=== PATIENT | female | born 1960 | race Asian ===

== ENCOUNTER 2017-05-06 01:59 | Day surgery (SDC) | payer OTHER ==
[~2017-05-06] VITALS: Ht 160 cm; Wt 62.6 kg
[~2017-05-06 01:59] MED LIST: ATOR10TA65 PO; BETA15CR2 TP; CALC500T6 PO; CHOL10005 PO; DICY10CA11 PO; LEVO75TA68 PO; OMEP40CA48 PO
[2017-05-06] MEDS ORDERED: fentaNYL CITR 100 MCG/2 ML AMP ONE ×2 (08:09→13:04)
[2017-05-06] MEDS ORDERED: LIDOCAINE MPF 1% 5 ML VIAL ONE (08:09)
[2017-05-06] MEDS ORDERED: PROPOFOL EMUL(*) 10MG/ML 20 ML 20 ML ONE (08:09)
[2017-05-06] MEDS ORDERED: DEXAMETHASONE SOD PHOS 10MG/ML ONE (08:09)
[2017-05-06] MEDS ORDERED: ONDANSETRON 4 MG/2 ML VIAL ONE (08:09)
[2017-05-06 08:56] LABS: PLATELET COUNT, AUTOMATED 302 K/uL (150-450)
[2017-05-06] MEDS ORDERED: NORMOSOL R SOLN(*) 1000 ML BAG 1,000 ML IV PRN (09:15)
[2017-05-06] MEDS ORDERED: FAMOTIDINE 20 MG TAB PO ONE (09:15)
[2017-05-06] MEDS ORDERED: LIDOCAINE/SOD BICARB 8.4% SYR ID ONE (09:15)
[2017-05-06] MEDS ORDERED: MIDAZOLAM 2 MG/2 ML VIAL IVP PRN (09:15)
[2017-05-06 09:27] VITALS: BP 141/76
[2017-05-06] MEDS ORDERED: ROCURONIUM BROM 10 MG/ML 5 ML ONE (10:45)
[2017-05-06] MEDS ORDERED: KETAMINE HCL 200 MG/20 ML MDV ONE (10:45)
[2017-05-06] MEDS ORDERED: ceFAZolin 1 GM VIAL ONE (11:06)
[2017-05-06] MEDS ORDERED: BUPIV/EPI 0.25% 1:200,000 50ML INFIL ONE (11:27)
[2017-05-06] MEDS ORDERED: SUGAMMADEX SOD 200 MG/2 ML SDV ONE (11:28)
[2017-05-06] MEDS ORDERED: ePHEDrine 25 MG/5 ML DISP.SYR IVP ONE (11:30)
[2017-05-06] MEDS ORDERED: HALOPERIDOL LACT 5 MG/ML VIAL IM ONE (11:39)
[2017-05-06] MEDS ORDERED: KETOROLAC 30 MG/ML VIAL ONE (12:15)
[2017-05-06] MEDS ORDERED: LR(*) 1000 ML BAG 1,000 ML IV ONE (12:50)
[2017-05-06] MEDS ORDERED: ONDANSETRON 4 MG/2 ML VIAL IVP PRN (12:50)
[2017-05-06] MEDS ORDERED: METOCLOPRAMIDE 10 MG/2 ML SDV IVP PRN (12:50)
--- NOTE | 2017-05-06 13:03 | Post Operative Note ---
Operative Note - [employer] Operative Day Date: May 06, 2017 Time: 12:51 Physicians Surgeon: Tere Enrique Safety Professional: Jeff Bishop MD Anesthesia: GET Diagnosis Pre-Op Diagnosis: 56 y/o G0 Female Postmenopausal bleeding Post-Op Diagnosis: Same Procedure Findings: Fluffy endometrium. No mass noted. Uterus 8 week size, Anterior uterine perforation noted. Diagnositic laparoscopy: Perforation anterior uterus at edge of where vesicouterine peritoneum meet. No bleeding. No bowel injury. Diagnositic Cystoscopy: Trigone intact, Bilateral uretral jets noted. Dome intact. No bladder injury. Hysteroscopy Deficit 246 Total Fluid used 750 Procedure(s): Diagnostic Hysteroscopy with Dilation and Currettage. Diagnostic Laparoscopy Diagnostic Cystoscopy Specimen Removed:(Maybe N/A): Endometrial Currettings Complications: Anterior Uterus Peforation Fluids Fluids: 1500 Estimated Blood Loss: 50 Dictated Date OP Note Dictated: May 06, 2017 Time OP Note Dictated: 13:03 TERE ENRIQUE DO May 06, 2017 13:03
[2017-05-06] MEDS ORDERED: IBUP800T37 PO (13:04)
[2017-05-06] MEDS ORDERED: PER PO (13:04)
--- NOTE | 2017-05-06 13:06 | OB/GYN Discharge Summary ---
Discharge Summary Reason for Hosp/Final Diag: (1) Post-menopausal bleeding Hospital Course & Plan: Pt presented for procedure. See procedure note for details. Pt remained in the out patient setting and was discharged home from Post op. [facility] Vital Signs Vital Signs Date Time Temp Pulse Resp B/P (MAP) Pulse Ox O2 Delivery O2 Flow Rate FiO2 05/06/17 09:27 98.3 73 16 141/76 (97) 92 Room Air Weight (Pounds): 138 Result Diagram: 05/06/17 0846 Condition: Improved Discharge: Home Home Meds Active Scripts Oxycodone/Acetaminophen (OXYCODONE/ACETAMINOPHEN 5MG/325 MG) 5 Mg/325 Mg Tab, 0 TAB PO Q4H Y for PAIN, #20 TAB 0 Refills Prov:TERE CHIN DO 05/06/17 Ibuprofen (IBUPROFEN) 800 Mg Tablet, 800 MG PO Q8H, #30 TAB 0 Refills Prov:TERE CHIN DO 05/06/17 Reported Medications Betamethasone/Propylene Glyc (BETAMETHASONE DP AUG 0.05% CRM) 15 Gm Cream..g., 15 GM TP DIRECTED 04/30/17 Dicyclomine Hcl (DICYCLOMINE HCL) 10 Mg Capsule, 10 MG PO QID Y for DIARRHEA, CAPSULE 04/30/17 Calcium Carbonate (CALCIUM) 500 Mg Tablet, 500 MG PO DAILY 04/30/17 Cholecalciferol (Vitamin D3) (VITAMIN D3) 1,000 Unit Tablet, 1000 UNIT PO DAILY , TAB 04/30/17 Omeprazole (OMEPRAZOLE) 40 Mg Capsule.dr, 40 MG PO HS, CAP 04/30/17 Atorvastatin Calcium (ATORVASTATIN CALCIUM) 10 Mg Tablet, 1 TAB PO HS, TAB 04/30/17 Levothyroxine Sodium (Levoxyl) 75 Mcg Tablet, 75 MCG PO QAM, 0 Refills 01/29/10 [facility] [phone], Dr. Chin [phone] Follow up in: 2 wks PO Discharge Diet: As Tolerates, Resume Prior Admit Diet, Increase Fluid Intake Discharge Activity: Pelvic Rest TERE CHIN DO May 06, 2017 13:06
[2017-05-06 13:43] VITALS: BP 107/63
[2017-05-06 14:04] VITALS: BP 120/71
[2017-05-06 14:15] VITALS: BP 108/70
[2017-05-06 14:28] VITALS: BP 112/73
[2017-05-06 14:29] VITALS: BP 122/68
--- NOTE | 2017-05-06 16:56 | OPERATIVE REPORT 1 ---
EVENT DATE: May 06, 2017 SURGEON: Rubén Enrique DO ANESTHESIOLOGIST: Hussein Nair MD ANESTHESIA: General endotracheal intubation. PATIENT TRANSITION SPECIALIST: Jeff Bishop MD PREOPERATIVE DIAGNOSES 1. A 56-year-old zero female. 2. Postmenopausal bleeding. 3. Failed endometrial biopsy in the office secondary to stenotic cervix. POSTOPERATIVE DIAGNOSES 1. A 56-year-old zero female. 2. Postmenopausal bleeding. 3. Failed endometrial biopsy in the office secondary to stenotic cervix. PROCEDURES PERFORMED 1. Diagnostic hysteroscopy with dilation and curettage. 2. Diagnostic laparoscopy. 3. Diagnostic cystoscopy. FINDINGS Fluffy endometrium on hysteroscopy. No mass noted. Uterus 8-week size. It was noted on diagnostic laparoscopy perforation of the anterior uterus at edge of the vesicouterine peritoneum. No bleeding noted. No bowel injury on running large and small bowel. Diagnostic cystoscopy, trigone intact. Bilateral ureteral jets noted. Dome intact. No bladder injury noted. Hysteroscopy deficit 246 with total fluid of 750 used. ESTIMATED BLOOD LOSS 50 mL PATHOLOGY Endometrial curettings. FLUIDS 1500 mL URINE OUTPUT Not reported. COMPLICATIONS Anterior uterus perforation. CONDITION Stable to recovery room. INDICATIONS AND CONSENT The patient is a 56-year-old zero female who presented to clinic with postmenopausal bleeding. An endometrial biopsy was performed in the clinic and was unsuccessful secondary to cervical stenosis. The patient represented for transvaginal ultrasound, and there was noted to be a 2 cm thick endometrial stripe. With the endometrial stripe being that thick, the patient was counseled that she should proceed with sampling of the uterine tissue. The patient was consented for diagnostic hysteroscopy and signed the appropriate consents. DESCRIPTION OF PROCEDURE The patient was taken to the operating room where she was placed in the dorsal supine position. She had general endotracheal intubation achieved. Once anesthesia was achieved, the patient was then placed in the dorsal lithotomy position. She was prepped and draped in the usual sterile manner. A sterile speculum was placed in the vagina. The cervix was visualized and grasped with a single-toothed tenaculum. The uterus was dilated using Hegar dilators to approximately a 9. The hysteroscope was easily placed through the cervix. Bilateral uterine cornua were noted. At this point, the patient then underwent curettage with a sharp curette. On the second pass of the endometrial curettings, there was immediate loss of resistance. The sharp curette was removed. The hysteroscope was placed back in the uterus, and it was noted that through the perforation, there was bowel, and omental appendages were easily visualized. Because of the perforation, the procedure at this point was halted. With perforation secondary to sharp curette, the patient would benefit from a diagnostic laparoscopy to ensure perforation of the bowel or bladder was not evident. Diagnostic laparoscopy: Once the abdomen was prepped, the 11 mm blade was then used to create a 5 mm incision. Once the incision was created, a pneumoperitoneum was achieved with a Veress needle. Direct laparoscopic entry was achieved. The abdomen was quickly inspected to ensure no injury. Upon getting in the abdomen, there was no injury noted. At this point, the patient was placed in Trendelenburg position. The uterus was inspected, and it was noted there was an anterior uterine perforation that appeared to be hemostatic. The perforation did appear to be at the edge of the vesicouterine peritoneum. At this point, the large bowel starting from the sigmoid colon was run in its entirety up the right pelvic sidewall as well as on the descending colon on the left pelvic sidewall with no injury noted on ascending, descending, or sigmoid colon. At this point, attention was then turned to finding the cecum, and the small bowel was run from the cecum. At this point, no injury was noted of the large or small bowel. The trocars were removed from the abdomen once the pneumoperitoneum was released, and diagnostic cystoscopy was performed. Diagnostic cystoscopy: With the cystoscope placed, the bladder was insufflated with normal saline. The trigone was inspected and found to be intact without any injury. Bilateral ureteral jets were visualized with no injury of the dome of the bladder. At this point with the procedure complete, the team felt the abdomen looked good with no signs of injury to the surrounding organs. The patient then had the skin incisions closed with a 4-0 Monocryl. The patient was then awoken and transferred to the recovery room in stable condition. MARTA
[2017-05-06] MEDS ORDERED: IBUPROFEN 800 MG TAB PO SCH (17:00)
== END 2017-05-06 13:42 | disposition home or self-care (01) ==
LOC: OR 01:59
PROVIDERS: ATTEND Student in an Organized Health Care Education/Training Program
DX: N95.0 Postmenopausal bleeding (principal); N88.2 Stricture and stenosis of cervix uteri
CPT/HCPCS: 36415; 52000; 58120; 85025; 88305; J0690; J1100; J1630; J1885; J2001; J2250; J2405; J2704; J3010; J3490

== ENCOUNTER → 2017-07-14 | Outpatient (CLI) | payer OTHER ==
[~2017-07-14] MED LIST changes: +IBUP800T37 PO; +PER PO
--- NOTE | 2017-07-15 08:38 | RADIOLOGY IMAGING REPORT ---
FACILITY: [facility] [place] PATIENT NAME: KATRIN VELAZQUEZ : [id number] MR: [id number] V: [id number] EXAM DATE: [id number] ORDERING PHYSICIAN: ERIK GONZALEZ TECHNOLOGIST: Kristan Guzman PROCEDURE:BILATERAL DIGITAL SCREENING MAMMOGRAM WITH CAD ASSISTED INTERPRETATION & 3D TOMOSYNTHESIS COMPARISON:Prior mammograms 06/25/16, 06/12/16, 02/19/15, 02/16/14, 02/14/13, 01/30/12. INDICATIONS:screening FINDINGS: Moderately heterogeneous fibroglandular tissue is seen throughout the breasts. The parenchymal pattern has remained stable allowing for difference in mammographic technique & patient positioning. There are multiple scattered small round calcifications seen throughout the breasts. There is no evidence of malignant appearing mass, malignant appearing calcifications or other secondary sign of malignancy in either breast. DIAGNOSTIC CATEGORY 2--BENIGN FINDING. RECOMMENDATIONS: ROUTINE MAMMOGRAM AND CLINICAL EVALUATION. IMPRESSION: BIRADS 2: Benign finding. No significant abnormality is seen. Dictated by: Kay Navarro M.D. on 07/14/2017 at 15:06 Transcribed by: NAYA on 07/14/2017 at 15:19 Approved by: Kay Navarro M.D. on 07/15/2017 at 8:37 [facility]
== END ==
LOC: MAMO 00:53
PROVIDERS: ATTEND Nurse Practitioner Family
DX: Z12.31 Encounter for screening mammogram for malignant neoplasm of breast (principal)
CPT/HCPCS: 77063; 77067

== ENCOUNTER → 2017-12-10 | Outpatient (CLI) | payer OTHER ==
--- NOTE | 2017-12-10 16:30 | RADIOLOGY IMAGING REPORT ---
FACILITY: [facility] [place] PATIENT NAME: Mirela Melgar : 1960 MR: [id number] V: [id number] EXAM DATE: ORDERING PHYSICIAN: ERIK GONZALEZ TECHNOLOGIST: Location: [facility] Patient: Mirela Melgar : 1960 Visit/Account:[id number] Date of Sevice: 12/10/2017 KUB SINGLE VIEW ABDOMEN HISTORY: Pain COMPARISON: CT examination abdomen and pelvis from December 2010 FINDINGS: Single view demonstrates nonobstructive bowel pattern. No pneumatosis, free air or radiographic evid ence of pathology. Vague circular densities are seen in the right upper quadrant, possibly represent ing gallstones. IMPRESSION: 1. Nonobstructive pattern without radiographic evidence of acute pathology. Report Dictated By: Vicente Paulino MD at 12/10/2017 4:25 PM Report E-Signed By: Vicente Paulino MD at 12/10/2017 4:27 PM WSN:[email or web address]
== END ==
LOC: RAD 15:20
PROVIDERS: ATTEND Nurse Practitioner Family
DX: R10.9 Unspecified abdominal pain (principal)
CPT/HCPCS: 74018

== ENCOUNTER 2017-12-16 09:10 | Outpatient (RCR) | payer OTHER ==
--- NOTE | 2017-12-21 10:00 | RADIOLOGY IMAGING REPORT ---
FACILITY: [facility] [place] PATIENT NAME: Mirela Melgar : 1960 MR: [id number] V: [id number] EXAM DATE: ORDERING PHYSICIAN: ERIK GONZALEZ TECHNOLOGIST: Location: Patient: Mirela Melgar : 1960 Visit/Account:[id number] Date of Sevice: 12/21/2017 EXAMINATION: Right upper quadrant abdominal ultrasound HISTORY: Right upper quadrant pain COMPARISON: September 15, 2013 FINDINGS: The visible aorta and IVC are normal. The visible pancreas is normal. The liver is normal in slightly increased in echogenicity and normal in size. Main portal vein is pa tent with expected directional flow. The gallbladder is normal without stone or wall thickening. The extrahepatic bile duct is normal chris suring 3 mm. Negative sonographic Wilson sign. The right kidney is normal measuring 9.7 cm sagittal dimension. IMPRESSION: 1. Normal gallbladder. 2. Slight hepatic steatosis. 3. Otherwise normal right upper quadrant ultrasound. Report Dictated By: Joce Grijalva MD at 12/21/2017 9:53 AM Report E-Signed By: Joce Grijalva MD at 12/21/2017 9:56 AM WSN:[email or web address]
== END 2017-12-21 18:00 | disposition home or self-care (01) ==
LOC: US 09:10
PROVIDERS: ATTEND Nurse Practitioner Family
DX: R10.11 Right upper quadrant pain (principal)
CPT/HCPCS: 76705

== ENCOUNTER 2018-04-30 16:11 | Emergency (ER) | payer OTHER ==
--- NOTE | 2018-04-30 16:22 | ER Report ---
History and Physical Time Seen By MD: 16:22 HPI/ROS CHIEF COMPLAINT: Lightheadedness and dizziness HISTORY OF PRESENT ILLNESS: This is a 57-year-old female who presents to the emergency department for lightheadedness and dizziness. Patient was seen and evaluated by her primary care provider this afternoon for lightheadedness and dizziness, they were concerned that she had a somewhat elevated blood pressure associate with her symptoms is going center to the ER for an evaluation. Patient arrives alert and oriented, interacting well. She had a mild pressure behind her left eye earlier this week however she denies symptoms of that at this time. She states she does have a history of positional vertigo typically on the left side, she usually avoid sleeping on her left side as this seems to induce the vertigo. Patient states that when she woke up this morning she sat up felt lightheaded and dizzy and had a nauseous feeling. Her symptoms are consistent with positional changes according the patient when she is walking up or downstairs, t urning or moving from a sitting to standing position is induce the dizziness. She denies fevers or chills. No chest pain or shortness of breath. No numbness or tingling. Denies headaches. No rashes. REVIEW OF SYSTEMS: Constitutional: No fever, no chills. Eyes: No discharge. ENT: No sore throat. Cardiovascular: No chest pain, no palpitations. Respiratory: No cough, no shortness of breath. Gastrointestinal: No abdominal pain, no vomiting. Genitourinary: No hematuria. Musculoskeletal: No back pain. Skin: No rashes. Neurological: As above. Allergies: Coded Allergies: No Known Drug Allergies (Verified , 04/30/18) Home Meds Active Scripts Ibuprofen (IBUPROFEN) 800 Mg Tablet, 800 MG PO Q8H, #30 TAB 0 Refills Prov:TERE CHIN DO 05/06/17 Reported Medications Betamethasone/Propylene Glyc (BETAMETHASONE DP AUG 0.05% CRM) 15 Gm Cream..g., 15 GM TP DIRECTED 04/30/17 Dicyclomine Hcl (DICYCLOMINE HCL) 10 Mg Capsule, 10 MG PO QID PRN for DIARRHEA, CAPSULE 04/30/17 Calcium Carbonate (CALCIUM) 500 Mg Tablet, 500 MG PO DAILY 04/30/17 Cholecalciferol (Vitamin D3) (VITAMIN D3) 1,000 Unit Tablet, 1000 UNIT PO DAILY, TAB 04/30/17 Omeprazole (OMEPRAZOLE) 40 Mg Capsule.dr, 40 MG PO HS, CAP 04/30/17 Atorvastatin Calcium (ATORVASTATIN CALCIUM) 10 Mg Tablet, 1 TAB PO HS, TAB 04/30/17 Levothyroxine Sodium (Levoxyl) 75 Mcg Tablet, 75 MCG PO QAM, 0 Refills 01/29/10 Discontinued Scripts Oxycodone/Acetaminophen (OXYCODONE/ACETAMINOPHEN 5MG/325 MG) 5 Mg/325 Mg Tab, 0 TAB PO Q4H PRN for PAIN, #20 TAB 0 Refills Prov:TERE CHIN DO 05/06/17 Past Medical/Surgical History The patient has a past medical and surgical history of hypercholesterolemia, pneumonia, occasional heartburn, arthritis, wears glasses, hypothyroidism, lupus, eczema, D&C, hysterectomy. Reviewed Nurses Notes: Yes Hx Smoking: No Hx Substance Use Disorder: No Hx Alcohol Use: No Constitutional Vital Sign - Last 24 Hours 04/30/18 04/30/18 04/30/18 04/30/18 16:11 16:16 16:19 16:26 Temp 98.2 Pulse ??? 78 80 Resp 14 15 B/P (MAP) 146/76 146/76 (99) Pulse Ox 94 93 O2 Delivery Room Air 04/30/18 04/30/18 04/30/18 04/30/18 16:30 16:41 16:46 16:47 Pulse 81 Resp 10 B/P (MAP) 145/62 (89) 143/59 (87) 153/77 (102) Pulse Ox 92 04/30/18 04/30/18 04/30/18 04/30/18 16:49 16:51 16:52 16:52 Pulse 79 82 82 B/P (MAP) 152/90 (110) 143/59 (87) 152/90 (110) 153/77 (102) 04/30/18 04/30/18 04/30/18 04/30/18 16:56 17:00 17:11 17:26 Pulse 80 79 ??? Resp 11 14 20 B/P (MAP) 107/56 (73) Pulse Ox 92 89 93 04/30/18 04/30/18 04/30/18 04/30/18 17:44 17:56 18:01 18:16 Pulse 69 73 80 Resp 11 12 16 B/P (MAP) 136/66 (89) Pulse Ox 92 91 90 04/30/18 04/30/18 04/30/18 18:30 18:31 18:46 Pulse 69 71 Resp 9 14 B/P (MAP) 129/69 (89) Pulse Ox 93 91 Physical Exam General Appearance: The patient is alert, has no immediate need for airway protection and no signs of toxicity. Eyes: Pupils equal and round no pallor or injection. EOMs intact. No nystagmus. ENT, Mouth: Mucous membranes are moist. Respiratory: There are no retractions, lungs are clear to auscultation. Cardiovascular: Regular rate and rhythm, no murmurs, clicks or rubs. Gastrointestinal: Abdomen is soft and non tender, no masses, bowel sounds normal. Neurological: Alert and oriented 4. Moving all extremities. Following all commands. No focal neuro deficits. Negative HINTS exam. Skin: Warm and dry, no rashes. Musculoskeletal: Neck is supple non tender. Extremities are nontender, nonswollen and have full range of motion. DIFFERENTIAL DIAGNOSIS: After history and physical exam differential diagnosis was considered for vertigo including but not limited to peripheral causes such a s benign positional vertigo, Mnire's disease, viral labyrinthitis and central causes such as CVA, and tumor. NIH Stroke Scale: 0 Level of consciousness: Alert -0 Answers both questions correctly-0 Performs both tasks correctly-0 Best Gaze: Normal-0 Visual: No visual loss-0 Facial Palsy: Normal, symmetrical movements-0 Motor Left Arm: No drift for 10 seconds-0 Motor Right Arm: No drift for 10 seconds-0 Motor Left Leg: No drift for 5 seconds-0 Motor Right Leg: No drift for 5 seconds-0 Limb Ataxia: Absent-0 Sensory: Normal, no sensory loss-0 Best Language: Normal, no aphasia-0 Dysarthria: Normal-0 Extinction and Inattention: No abnormality-0 Medical Decision Making Data Points Result Diagram: 04/30/18 1716 04/30/18 1716 Laboratory Hematology Test 04/30/18 16:17 04/30/18 17:16 Urine Color Yellow Urine Clarity Clear Urine pH 7.0 pH (4.8-9.5) Urine Specific [place] 1.014 Urine Protein Negative mg/dL (NEGATIVE) Urine Glucose (UA) 50 mg/dL (NEGATIVE) Urine Ketones Negative mg/dL (NEGATIVE) Urine Blood Negative (NEGATIVE) Urine Nitrite Negative (NEGATIVE) Urine Bilirubin Negative (NEGATIVE) Urine Urobilinogen Negative mg/dL (0.2-1.9) Urine Leukocyte Esterase Negative (NEGATIVE) Urine RBC <1 /HPF (0-2/HPF) Urine WBC None /HPF (0-5/HPF) Urine Squamous Epithelial Cells None /LPF (</=FEW) Urine Bacteria Negative /HPF (NONE-FEW) Urine Mucus Few /HPF (NONE-FEW) Red Blood Count 4.82 M/uL (4.17-5.56) Mean Corpuscular Volume 92.8 fL (80.0-96.0) Mean Corpuscular Hemoglobin 30.4 pg (26.0-33.0) Mean Corpuscular Hemoglobin Concent 32.8 g/dL (32.0-36.0) Red Cell Distribution Width 13.5 % (11.5-14.5) Mean Platelet Volume 7.1 fL (7.2-11.1) Neutrophils (%) (Auto) 65.0 % (39.4-72.5) Lymphocytes (%) (Auto) 28.6 % (17.6-49.6) Monocytes (%) (Auto) 5.5 % (4.1-12.4) Eosinophils (%) (Auto) 0.3 % (0.4-6.7) Basophils (%) (Auto) 0.6 % (0.3-1.4) Nucleated RBC Relative Count (auto) 0.0 /100WBC Neutrophils # (Auto) 3.0 K/uL (2.0-7.4) Lymphocytes # (Auto) 1.3 K/uL (1.3-3.6) Monocytes # (Auto) 0.3 K/uL (0.3-1.0) Eosinophils # (Auto) 0.0 K/uL (0.0-0.5) Basophils # (Auto) 0.0 K/uL (0.0-0.1) Nucleated RBC Absolute Count (auto) 0.00 K/uL Sodium Level 142 mmol/L (137-145) Potassium Level 3.6 mmol/L (3.5-5.0) Chloride Level 107 mmol/L (98-107) Carbon Dioxide Level 26 mmol/L (22-31) Blood Urea Nitrogen 11 mg/dl (7-18) Creatinine 0.50 mg/dl (0.52-1.04) Glomerular Filtration Rate Calc > 60.0 Random Glucose 150 mg/dl (75-110) Calcium Level 9.4 mg/dl (8.4-10.2) Total Bilirubin 0.4 mg/dl (0.2-1.3) Aspartate Amino Transf (AST/SGOT) 39 U/L (0-35) Alanine Aminotransferase (ALT/SGPT) 39 U/L (0-56) Alkaline Phosphatase 73 U/L (0-126) Total Protein 8.0 g/dl (6.3-8.2) Albumin 4.5 g/dl (3.5-5.0) Chemistry Test 04/30/18 16:17 04/30/18 17:16 Urine Color Yellow Urine Clarity Clear Urine pH 7.0 pH (4.8-9.5) Urine Specific [place] 1.014 Urine Protein Negative mg/dL (NEGATIVE) Urine Glucose (UA) 50 mg/dL (NEGATIVE) Urine Ketones Negative mg/dL (NEGATIVE) Urine Blood Negative (NEGATIVE) Urine Nitrite Negative (NEGATIVE) Urine Bilirubin Negative (NEGATIVE) Urine Urobilinogen Negative mg/dL (0.2-1.9) Urine Leukocyte Esterase Negative (NEGATIVE) Urine RBC <1 /HPF (0-2/HPF) Urine WBC None /HPF (0-5/HPF) Urine Squamous Epithelial Cells None /LPF (</=FEW) Urine Bacteria Negative /HPF (NONE-FEW) Urine Mucus Few /HPF (NONE-FEW) White Blood Count 4.6 k/uL (4.5-11.0) Red Blood Count 4.82 M/uL (4.17-5.56) Hemoglobin 14.7 g/dL (12.0-16.0) Hematocrit 44.7 % (34.0-47.0) Mean Corpuscular Volume 92.8 fL (80.0-96.0) Mean Corpuscular Hemoglobin 30.4 pg (26.0-33.0) Mean Corpuscular Hemoglobin Concent 32.8 g/dL (32.0-36.0) Red Cell Distribution Width 13.5 % (11.5-14.5) Platelet Count 293 K/uL (150-450) Mean Platelet Volume 7.1 fL (7.2-11.1) Neutrophils (%) (Auto) 65.0 % (39.4-72.5) Lymphocytes (%) (Auto) 28.6 % (17.6-49.6) Monocytes (%) (Auto) 5.5 % (4.1-12.4) Eosinophils (%) (Auto) 0.3 % (0.4-6.7) Basophils (%) (Auto) 0.6 % (0.3-1.4) Nucleated RBC Relative Count (auto) 0.0 /100WBC Neutrophils # (Auto) 3.0 K/uL (2.0-7.4) Lymphocytes # (Auto) 1.3 K/uL (1.3-3.6) Monocytes # (Auto) 0.3 K/uL (0.3-1.0) Eosinophils # (Auto) 0.0 K/uL (0.0-0.5) Basophils # (Auto) 0.0 K/uL (0.0-0.1) Nucleated RBC Absolute Count (auto) 0.00 K/uL Glomerular Filtration Rate Calc > 60.0 Calcium Level 9.4 mg/dl (8.4-10.2) Total Bilirubin 0.4 mg/dl (0.2-1.3) Aspartate Amino Transf (AST/SGOT) 39 U/L (0-35) Alanine Aminotransferase (ALT/SGPT) 39 U/L (0-56) Alkaline Phosphatase 73 U/L (0-126) Total Protein 8.0 g/dl (6.3-8.2) Albumin 4.5 g/dl (3.5-5.0) Urinalysis Test 04/30/18 16:17 Urine Color Yellow Urine Clarity Clear Urine pH 7.0 pH (4.8-9.5) Urine Specific [place] 1.014 Urine Protein Negative mg/dL (NEGATIVE) Urine Glucose (UA) 50 mg/dL (NEGATIVE) Urine Ketones Negative mg/dL (NEGATIVE) Urine Blood Negative (NEGATIVE) Urine Nitrite Negative (NEGATIVE) Urine Bilirubin Negative (NEGATIVE) Urine Urobilinogen Negative mg/dL (0.2-1.9) Urine Leukocyte Esterase Negative (NEGATIVE) Urine RBC <1 /HPF (0-2/HPF) Urine WBC None /HPF (0-5/HPF) Urine Squamous Epithelial Cells None /LPF (</=FEW) Urine Bacteria Negative /HPF (NONE-FEW) Urine Mucus Few /HPF (NONE-FEW) EKG/Imaging EKG Interpretation 12 lead EKG: Time of EKG 1706. Rhythm: Normal sinus rhythm, ventricular rate 73 bpm. [place]: normal QRS: normal ST segments: No ST depression or elevation identified, poor T-wave progression in leads V1 through V4. No previous EKGs for comparison. Imaging Location: [facility] - [place] Patient: Mirela Melgar : 1960 Visit/Account:[id number] Date of Sevice: 04/30/2018 EXAMINATION: CT HEAD WITHOUT CONTRAST COMPARISON: None available HISTORY: dizziness PROCEDURE: Noncontrast CT from the vertex through the skull base. One of the following dose optimization techniques was utilized in the performance of this exam: Automated exposure control; adjustment of the mA and/or kV according to the patient's size; or use of an iterative reconstruction technique. Specific details can be referenced in the facility's radiology CT exam operational policy. FINDINGS: Brain volume: Age-appropriate. Hemorrhage/extra-axial fluid: None. Mass effect/midline shift/edema: None. Ischemia: Gentile-white differentiation is preserved. Ventricles and basal cisterns: Within normal limits. Posterior fossa: Negative. Vessels: Negative. Calvarium, skull base, and scalp: Negative. Visualized sinuses and orbits: Within normal limits. IMPRESSION: 1. No intracranial hemorrhage or mass effect. 2. No CT findings of acute ischemia. Report Dictated By: Rip Crowley MD at 04/30/2018 6:00 PM Report E-Signed By: Rip Crowley MD at 04/30/2018 6:05 PM [id number] Location: [facility] - [place] Patient: Mirela Melgar : 1960 Visit/Account:[id number] Date of Sevice: 04/30/2018 Examination: CHEST PA LAT Comparison: 01/25/2014. History: dizziness Findings: Cardiac and hilar contour size is normal. No consolidation, nodule, or peribronchial inflammation. No pneumothorax, edema, or effusion. Osseous structures are intact. IMPRESSION: No evidence of acute cardiopulmonary disease. Report Dictated By: Rip Crowley MD at 04/30/2018 5:58 PM Report E-Signed By: Rip Crowley MD at 04/30/2018 6:00 PM WSN:[id number] ED Course/Re-evaluation Clinical Indication for ER IV: Hydration, IV Access ED Course The patient was admitted to room. A history and physical were obtained. Differential diagnoses were considered. IV was started. A CBC, CMP were obtained. A 1 L normal saline bolus was given. Laboratory studies unremarkable, negative UA. EKG showing normal sinus rhythm no ST depression or elevation. Negative two-view chest x-ray, negative head CT. I did review the results with the patient. Her symptoms have begun to resolve, she did ambulate to the bathroom with a steady gait, she does state that her dizziness is improving. She did have a negative NIH exam, negative HIINts exam. I reviewed this with the patient I did tell her I do feel her symptoms are consistent with positional vertigo. She was given a 12.5 mg dose of meclizine, she states the full dose does cause drowsiness. I also gave her a visual on the Cielo Foster vertigo maneuvers which they can and to their Gaston maneuver regimen. The patient and her at bedside expressed understanding, patient was in agreement with this plan of care, they'll follow up with her primary care provider next week for reevaluation. Blood pressure markedly improved upon discharge. 04/30/2018 6:42:18 pm the patient states that her overall sensation of dizziness is improving, she is feeling much better, patient has not complained of headache while in the emergency department. Decision to Disposition Date: Apr 30, 2018 Decision to Disposition Time: 18:30 Depart Departure Latest Vital Signs Vital Signs Date Time Temp Pulse Resp B/P (MAP) Pulse Ox O2 Delivery O2 Flow Rate FiO2 04/30/18 18:46 71 14 91 04/30/18 18:30 129/69 (89) 04/30/18 16:16 98.2 Room Air Impression: Primary Impression: Benign paroxysmal positional vertigo Condition: Improved Disposition: HOME OR SELF-CARE Referrals: ERIK GONZALEZ (PCP) 1 Week Patient Instructions: Benign Paroxysmal Positional Vertigo (ED) Additional Instructions: No concerning findings on the laboratory studies, EKG, CT scan of the brain or chest x-ray. I do not believe that your symptoms are consistent with positional vertigo. Your urine one dose of meclizine while in the ER, please consider taking meclizine at home, if this does cause drowsiness, you can try a half dose which is 12.5 mg once a day. Please continue drinking plenty of water. Get plenty of rest. Try the Cielo Foster vertigo maneuver in addition to the Gaston maneuvers, this may help with the dizziness. Your blood pressure was normal at the time of your departure from the emergency department. Please follow-up with your primary care provider next week for reevaluation. Please return to the emergency department for any other concerns or worsening symptoms. Problem Qualifiers Primary Impression: Benign paroxysmal positional vertigo Laterality: unspecified laterality Qualified Codes: H81.10 - Benign paroxysmal vertigo, unspecified ear ROCKY MORENO DIPLOMATIC INTERPRETER-BC Apr 30, 2018 16:22
[2018-04-30] MEDS ORDERED: NS(*) 0.9% 1000 ML BAG 1,000 ML IV ONE (17:01)
[2018-04-30] MEDS ORDERED: ONDANSETRON 4 MG/2 ML VIAL IVP ONE (17:05)
[2018-04-30 17:23] LABS: PLATELET COUNT, AUTOMATED 293 K/uL (150-450)
--- NOTE | 2018-04-30 17:24 | EKG ---
FACILITY: [facility] - [place], [place] PATIENT NAME: KATRIN VELAZQUEZ : [id number] MR: [id number] V: [id number] EXAM DATE: ORDERING PHYSICIAN: ROCKY MORENO TECHNOLOGIST: Test Reason : Blood Pressure : / mmHG Vent. Rate : 073 BPM Atrial Rate : 073 BPM P-R Int : 142 ms QRS Dur : 084 ms QT Int : 408 ms P-R-T Axes : 007 050 051 degrees QTc Int : 449 ms Normal sinus rhythm Normal ECG No previous ECGs available Confirmed by VALENTIN HERRERA ([id number]) on 05/01/2018 6:40:03 AM Referred By: Confirmed By:VALENTIN HERRERA
--- NOTE | 2018-04-30 18:03 | RADIOLOGY IMAGING REPORT ---
FACILITY: [facility] - [place] PATIENT NAME: Mirela Melgar : 1960 MR: [id number] V: [id number] EXAM DATE: ORDERING PHYSICIAN: ROCKY MORENO TECHNOLOGIST: Location: [facility] Patient: Mirela Melgar : 1960 Visit/Account:[id number] Date of Sevice: 04/30/2018 Examination: CHEST PA LAT Comparison: 01/25/2014. History: dizziness Findings: Cardiac and hilar contour size is normal. No consolidation, nodule, or peribronchial inflam mation. No pneumothorax, edema, or effusion. Osseous structures are intact. IMPRESSION: No evidence of acute cardiopulmonary disease. Report Dictated By: Rip Crowley MD at 04/30/2018 5:58 PM Report E-Signed By: Rip Crowley MD at 04/30/2018 6:00 PM [id number]
--- NOTE | 2018-04-30 18:09 | RADIOLOGY IMAGING REPORT ---
FACILITY: [facility] PATIENT NAME: Mirela Melgar : 1960 MR: [id number] V: [id number] EXAM DATE: ORDERING PHYSICIAN: ROCKY MORENO TECHNOLOGIST: Location: [facility] - [place] Patient: Mirela Melgar : 1960 Visit/Account:[id number] Date of Sevice: 04/30/2018 EXAMINATION: CT HEAD WITHOUT CONTRAST COMPARISON: None available HISTORY: dizziness PROCEDURE: Noncontrast CT from the vertex through the skull base. One of the following dose optimizat ion techniques was utilized in the performance of this exam: Automated exposure control; adjustment o f the mA and/or kV according to the patient's size; or use of an iterative reconstruction technique. Specific details can be referenced in the facility's radiology CT exam operational policy. FINDINGS: Brain volume: Age-appropriate. Hemorrhage/extra-axial fluid: None. Mass effect/midline shift/edema: None. Ischemia: Gentile-white differentiation is preserved. Ventricles and basal cisterns: Within normal limits. Posterior fossa: Negative. Vessels: Negative. Calvarium, skull base, and scalp: Negative. Visualized sinuses and orbits: Within normal limits. IMPRESSION: 1. No intracranial hemorrhage or mass effect. 2. No CT findings of acute ischemia. Report Dictated By: Rip Crowley MD at 04/30/2018 6:00 PM Report E-Signed By: Rip Crowley MD at 04/30/2018 6:05 PM WSN:[id number]
[2018-04-30] MEDS ORDERED: MECLIZINE HCL 12.5 MG TAB PO ONE (18:20)
[2018-04-30 18:30] VITALS: BP 129/69
== END 2018-04-30 18:51 | disposition home or self-care (01) ==
LOC: ER 16:24
DX: H81.10 Benign paroxysmal vertigo, unspecified ear (principal)
CPT/HCPCS: 36415; 70450; 71046; 81001; 85025; 93005; 96361; 96374; 99284; J2405; J7030; J8597; 82040; 82247; 82310; 82374; 82435; 82565; 82947; 84075; 84132; 84155; 84295; 84450; 84460; 84520

== ENCOUNTER → 2018-09-20 | Outpatient (CLI) | payer OTHER ==
--- NOTE | 2018-09-20 17:32 | RADIOLOGY IMAGING REPORT ---
FACILITY: [facility] - [place] PATIENT NAME: KATRIN VELAZQUEZ : [id number] MR: [id number] V: [id number] EXAM DATE: [id number] ORDERING PHYSICIAN: ERIK GONZALEZ TECHNOLOGIST: Kristan Guzman PROCEDURE: BILATERAL DIGITAL SCREENING MAMMOGRAM WITH CAD ASSISTED INTERPRETATION & 3D TOMOSYNTHESIS REASON FOR STUDY: Screening. FAMILY HISTORY OF BREAST CANCER: None. FAMILY HISTORY OF OVARIAN CANCER: Maternal great grandmother and 2 maternal aunts. BREAST PROCEDURES/TREATMENTS: None. COMPARISON: 07/14/17, 06/25/16, 06/12/16, 02/19/15, 02/16/14, 02/14/13. VIEWS OBTAINED: Bilateral 2D & 3D full field CC & MLO projections. BREAST DENSITY: The breasts are heterogeneously dense which can obscure small masses. MAMMOGRAM FINDINGS: There are scattered round calcifications seen throughout both breasts that appear similar to the prior studies. The parenchymal pattern has remained stable allowing for difference in mammographic technique & patient positioning. IMPRESSION: BIRADS 2: Benign finding. DIAGNOSTIC CATEGORY 2--BENIGN FINDING. RECOMMENDATIONS: ROUTINE MAMMOGRAM AND CLINICAL EVALUATION. Dictated by: Kay Navarro M.D. on 09/20/2018 at 15:16 Transcribed by: NAYA on 09/20/2018 at 15:55 Approved by: Kay Navarro M.D. on 09/20/2018 at 17:27 [facility]
== END ==
LOC: MAMO 03:39
PROVIDERS: ATTEND Nurse Practitioner Family
DX: Z12.31 Encounter for screening mammogram for malignant neoplasm of breast (principal)
CPT/HCPCS: 77063; 77067